=== PATIENT | female | born 1985 | race Caucasian/White ===

== ENCOUNTER 2017-11-04 16:01 | Emergency (ER) | payer BC ==
--- NOTE | 2017-11-04 16:12 | UC ---
Complaint Female HPI - History Of Current Complaint Stated Complaint: URINARY PRESSURE Time Seen by Provider: 11/04/17 16:12 Hx Last Menstrual Period: 05/18/12 - Allergies/Home Medications Allergies/Adverse Reactions: Allergies Allergy/AdvReac Type Severity Reaction Status Date / Time MS Sulfa Drugs [Sulfa Drugs] Allergy Unknown Verified 05/20/12 09:59 Reaction Details MS Amoxicillin [Amoxicillin] AdvReac Intermediate Yeast Verified 05/20/12 09:59 Infection PMH/Surg Hx/FS Hx/Imm Hx - Surgical History Surgical History: Yes Surgery Procedure, Year, and Place: T&A, 1994, [facility] [place]. Left Knee Arthroscopy, 2005 , [employer] - Social History Substance Use Type: None Discharge - Discharge Plan Referrals: Debbie Ray [Primary Care Provider] -
[2017-11-04 16:18] VITALS: BP 147/86
--- NOTE | 2017-11-04 16:23 | UC ---
Complaint Female HPI - HPI Summary HPI Summary: This patient is a 32 year old F presenting to [facility] with a chief complaint of little twinges in her abdomen since 1 day ago. The patient rates the pain 2/ 10 in severity. Symptoms aggravated by nothing. Symptoms alleviated by nothing. Patient reports frequency in urination. Patient denies dysuria or any pain. The patient notes that she thinks she is dehydrated and has a UTI. - History Of Current Complaint Stated Complaint: URINARY PRESSURE Time Seen by Provider: 11/04/17 16:12 Hx Obtained From: Patient Hx Last Menstrual Period: 05/18/12 Onset/Duration: Gradual Onset, Lasting Days - 1 day, Still Present Timing: Intermittent Severity Initially: Mild Severity Currently: Mild Pain Intensity: 2 Pain Scale Used: 0-10 Numeric Aggravating Factor(s): Nothing Alleviating Factor(s): Nothing - Allergies/Home Medications Allergies/Adverse Reactions: Allergies Allergy/AdvReac Type Severity Reaction Status Date / Time Sulfa (Sulfonamide Allergy Unknown Verified 11/04/17 16:19 Antibiotics) Reaction Details PMH/Surg Hx/FS Hx/Imm Hx Previously Healthy: Yes - Surgical History Surgical History: Yes Surgery Procedure, Year, and Place: T&A, 1994, [facility] [place]. Left Knee Arthroscopy, 2005 , [employer] - Family History Known Family History: Positive: None - Social History Substance Use Type: None Review of Systems Constitutional: Negative - negative fever Gastrointestinal: Negative - negative vomiting Genitourinary: Negative - negative dysuria, Frequency - frequency of urination All Other Systems Reviewed And Are Negative: Yes Physical Exam - Summary Physical Exam Summary: VITAL SIGNS: Reviewed. GENERAL: Patient is a well-developed and nourished FEMALE who is lying comfortable in the stretcher. Patient is not in any acute respiratory distress. HEAD AND FACE: Normocephalic EYES: PERRLA, EOMI x 2. EARS: Hearing grossly intact. MOUTH: Oropharynx within normal limits. NECK: Supple, trachea is midline, no adenopathy, no JVD, no carotid bruit. CHEST: Symmetric, no tenderness at palpation LUNGS: Clear to auscultation bilaterally. No wheezing or crackles. CVS: Regular rate and rhythm, S1 and S2 present, no murmurs or gallops appreciated. ABDOMEN: Soft, non-tender. Bowel sounds are normal. No abdominal abnormal pulsations. EXTREMITIES: Full ROM in all major joints, no edema, no cyanosis or clubbing. NEURO: Alert and oriented x 3. No acute neurological deficits. Speech is normal and follows commands. SKIN: Dry and warm Triage Information Reviewed: Yes Vital Signs Reviewed: Yes Complaint Female Dx - Course Course Of Treatment: Urinalysis is negative for UTI. Likely the symptoms are secondary to the medical cramping. Since the patient does have any other symptoms the patient will be discharged home with follow-up with primary care physician. Patient was instructed to return to the urgent care or follow up with the emergency department if the symptoms get worse. She understands and agrees. - Differential Dx/Diagnosis Provider Diagnoses: abdominal cramping, menstrual cycle, elevated blood pressure without diagnosis of hypertension Discharge - Sign-Out/Discharge Documenting (check all that apply): Patient Departure - Discharge Plan Condition: Stable Disposition: HOME Patient Education Materials: Acute Abdominal Pain (DC) Referrals: Debbie Ray [Primary Care Provider] - Additional Instructions: Increase your fluid intake Return to the if symptoms worsen - Billing Disposition and Condition Condition: STABLE Disposition: Home
== END 2017-11-04 16:47 | disposition home or self-care (01) ==
LOC: UCEAST 16:01
DX: R10.30 Lower abdominal pain, unspecified (principal); R03.0 Elevated blood-pressure reading, without diagnosis of hypertension; Z88.2 Allergy status to sulfonamides
CPT/HCPCS: 81003; 99211; G0463